=== PATIENT | female | born 1950 | race Caucasian/White ===

== ENCOUNTER 2017-10-30 14:19 | Day surgery (SDC) | payer MEDICARE, BC, SELFPAY ==
[2017-10-30 14:45] VITALS: BP 142/84; PULSE 71; RESP 20; TEMP 36.6; O2SAT 95
[2017-10-30] MEDS: SODIUM CHLORIDE 0.9% 1,000 ML 21 ML IV (14:45)
[2017-10-30 14:47] VITALS: BMI 29.0
--- NOTE | 2017-10-30 14:58 | PM.HP.1 ---
History of Present Illness Date Patient Seen: 10/30/17 Time Patient Seen: 14:59 Chief complaint: colonoscopy [id number] Narrative: Personal history of colon polyps and family history of colon cancer in her mother Patient History Medical History Hypothyroid (Acute) Family & Social History Social History: household members spouse Meds Home Medications Medication Instructions Recorded Confirmed Type ascorbic acid (vitamin C) [Vitamin 1,000 mg PO DAILY 10/30/17 10/30/17 History C] flaxseed oil 1,400 mg PO DAILY 10/30/17 10/30/17 History levothyroxine 50 mcg PO DAILY 10/30/17 10/30/17 History Allergies Allergy/AdvReac Type Severity Reaction Status Date / Time sulfamethoxazole AdvReac Severe fainted Verified 10/30/17 14:43 [From Bactrim] trimethoprim [From Bactrim] AdvReac Severe fainted Verified 10/30/17 14:43 codeine AdvReac Unknown lightheaded, Verified 10/30/17 14:43 nausea Exam Narrative Exam Narrative: Oropharynx free of lesion Chest clear to auscultation percussion Cardiac exam reveals no S3 or murmur Assessment & Plan Plan: Assessment/Plan Narrative: Personal history of colon polyps and family history of colon cancer. No other symptoms. Need for screening colonoscopy which will be performed today.
--- NOTE | 2017-10-30 15:00 | PM.OP.ENDO ---
Operative Date/Time/Diagnoses Date of procedure: 10/30/17 Time of procedure: 15:00 Pre-op diagnosis: See indications Procedure & Clinicians Study performed: Colonoscopy Same procedure as scheduled: Yes Indications: Personal history of colon polyps and family history of colon cancer in her mother Surgeon: Domenic Johnson Procedure Notes Procedure in detail: After informed consent was obtained the patient was placed in the left lateral decubitus position. The video colonoscope introduced to the rectum slowly advanced to the cecum. On slow withdrawal mucosa was carefully examined. Preparation was excellent. Scope was removed patient tolerated procedure well Blood loss none Complications none Sedation Fentanyl 100 mcg Versed 6 mg IV titration Total sedation time 18 min Findings 1. Normal colonoscopy to cecum Patient had negative colonoscopy 5 years ago as well. Given her age she should have colonoscopy again in 5 years.
[2017-10-30] MEDS: fentaNYL 250 MCG/5 ML INJ IV (15:17)
[2017-10-30] MEDS: MIDAZOLAM 5 MG/5 ML VIAL IV (15:19)
[2017-10-30 15:20] VITALS: BP 118/69; PULSE 68; RESP 33; TEMP 36.3; O2SAT 95
[2017-10-30 15:25] VITALS: BP 112/69; PULSE 65; RESP 15; O2SAT 92
[2017-10-30 15:30] VITALS: BP 125/74; PULSE 64; RESP 21; O2SAT 93
--- NOTE | 2017-10-30 15:30 | SUR.PHASEI ---
Pt arousable. Denied pain, abd soft.
[2017-10-30 15:35] VITALS: BP 122/74; PULSE 63; RESP 22; O2SAT 92
[2017-10-30 16:16] VITALS: BP 144/80; PULSE 71; RESP 16; TEMP 36.3; O2SAT 99
--- NOTE | 2017-10-30 16:24 | SUR.PHASEII ---
Abd soft, denied pain
== END 2017-10-30 16:16 | disposition home or self-care (01) ==
PROVIDERS: PCP Physician Assistant; Visit Provider Internal Medicine Gastroenterology
PROC: 0DJD8ZZ Inspection of Lower Intestinal Tract, Via Natural or Artificial Opening Endoscopic (ICD-10-PCS; CPT 45378; principal; 2017-10-30 15:30)
DX: Z80.0 Family history of malignant neoplasm of digestive organs (principal); E03.9 Hypothyroidism, unspecified
CPT/HCPCS: G0105; J2250; J3010

== ENCOUNTER → 2023-08-26 15:24 | Outpatient (CLI) | payer MEDICARE, BC, SELFPAY ==
--- NOTE | 2023-08-26 15:26 | DI.MRI.S_ITS ---
PROCEDURE: MR KNEE LT WO CON INDICATIONS: Pain in left knee TECHNIQUE: Noncontrast sagittal PD fast spin echo and T2 fast spin echo with fat saturation, sagittal 3-D FLASH with fat saturation; coronal T1 spin echo and PD fast spin echo with fat saturation, and axial PD fast spin echo with fat saturation through the knee. COMPARISON: None. FINDINGS: Image quality: Excellent. Menisci: Subtle signal abnormality involving medial periphery of anterior horn and body of medial meniscus concerning for subtle oblique tear extending to inferior articulating surface. The lateral meniscus is intact. Peripheral displacement of medial meniscus bowing medial collateral ligament is seen. Low to moderate grade partial-thickness tear involving posterior medial meniscal root is seen. Cruciate ligaments: The anterior cruciate ligament appears thickened. The PCL is intact. Medial structures: The medial collateral ligament appears mildly thickened. Visualized portions of the pes anserinus tendons appear normal. No abnormal bursal fluid. Lateral structures: The lateral collateral ligament, long and short heads of the biceps femoris tendon appear intact. The popliteus tendon appears intact. Iliotibial band appears normal. Anterior structures: There is low-grade partial-thickness tear involving medial patellofemoral ligament at its patellar insertion. The quadriceps and patellar tendons appear intact. Patellar alignment is normal. No femoral trochlear dysplasia or ventral trochlear prominence. No edema in the infrapatellar fat pad. 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 Marrow edema involving medial weight-bearing portion of proximal tibia extending to medial tibial plateau is seen without discrete fracture line. Joint space: There is small knee joint fluid. There is a tiny popliteal cyst. Normal appearing synovial plicae are incidentally noted. IMPRESSION: 1. Suggestion of very subtle oblique tear involving medial periphery of anterior horn and body of medial meniscus extending to inferior articulating surface. Low to moderate grade partial-thickness tear involving posterior medial meniscal root. The lateral meniscus is intact. 2. Thickened ACL suggestive of chronic degenerative changes. No ACL rupture. The PCL is intact. 3. Very low-grade MCL sprain. 4. Low-grade partial-thickness tear involving medial patellofemoral ligament at its patella insertion. No significant patellar subluxation. 5. [id number] tricompartmental osteoarthritis and chondromalacia most notably in medial femoral tibial compartment as above. No fracture or dislocation. Small joint effusion and a tiny popliteal cyst. No loose bodies. Dictated by: Chris Purcell M.D. on 08/27/2023 at 9:17 Approved by: Chris Purcell M.D. on 08/27/2023 at 9:23
== END ==
PROVIDERS: PCP Internal Medicine; Referring Provider Orthopaedic Surgery; Visit Provider Orthopaedic Surgery
DX: S83.242A Other tear of medial meniscus, current injury, left knee, initial encounter (principal); S76.112A Strain of left quadriceps muscle, fascia and tendon, initial encounter; M17.12 Unilateral primary osteoarthritis, left knee; M94.262 Chondromalacia, left knee; M25.462 Effusion, left knee; M25.562 Pain in left knee
CPT/HCPCS: 73721